=== PATIENT | female | born 1985 | race American Indian/Alaskan Native ===

== ENCOUNTER 2021-02-15 14:57 | Emergency (ER) | payer BC, MEDICAID ==
[2021-02-15 15:48] VITALS: BP 116/82
[2021-02-15] MEDS ORDERED: IBUPROFEN 800 MG TAB PO STA (16:07)
[2021-02-15] MEDS ORDERED: ACETAMINOPHEN 500 MG TAB PO STA (16:07)
--- NOTE | 2021-02-15 16:09 | Emergency Department Report ---
ED General Adult HPI - General Chief complaint: Extremity Problem,Nontraumatic Stated complaint: HAND PAIN Time Seen by Provider: 02/15/21 15:41 Source: patient Mode of arrival: Ambulatory Limitations: No Limitations - History of Present Illness Initial comments: 35-year-old female patient with history of bipolar disorder presents with complaints of bilateral hand pain x3 days. Patient states she believes she has infection in 2 her hands due to chewing on them regularly. She also reports that she has been off of her Abilify and her anxiety has been high and she has been banking her hands on tables. She denies any swelling to the hands, fever/chills/sweats, or difficulty moving her hands. No IV drug use per patient. She rates her current pain as a 5/10 in severity has not tried any OTC medication for symptoms. -: Sudden Severity scale (0 -10): 10 - Related Data Home Medications Medication Instructions Recorded Confirmed Last Taken ARIPiprazole [Abilify TAB] 20 mg PO DAILY 08/21/16 08/21/16 08/20/16 buPROPion HCL [buPROPion] 75 mg PO DAILY 08/21/16 08/21/16 08/20/16 lamoTRIgine [LaMICtal] 150 mg PO BID 08/21/16 08/21/16 08/20/16 Previous Rx's Medication Instructions Recorded Last Taken Type Ibuprofen [Motrin 800 MG tab] 800 mg PO Q8HR PRN #20 tablet 02/15/21 Unknown Rx cephALEXin [Keflex] 500 mg PO Q8HR 7 Days #21 cap 02/15/21 Unknown Rx Allergies Allergy/AdvReac Type Severity Reaction Status Date / Time No Known Allergies Allergy Unverified 08/21/16 07:12 ED Review of Systems ROS: Stated complaint: HAND PAIN Other details as noted in HPI Constitutional: denies: chills, fever, malaise, weakness Musculoskeletal: arthralgia. denies: joint swelling Skin: lesions. denies: rash Neurological: denies: numbness, paresthesias ED Past Medical Hx - Past Medical History Previous Medical History?: No Hx Psychiatric Treatment: Yes (bipolar) - Surgical History Past Surgical History?: No - Social History Smoking Status: Current Every Day Smoker Substance Use Type: Alcohol, Prescribed, Other - Medications Home Medications: Home Medications Medication Instructions Recorded Confirmed Last Taken Type ARIPiprazole [Abilify TAB] 20 mg PO DAILY 08/21/16 08/21/16 08/20/16 History buPROPion HCL [buPROPion] 75 mg PO DAILY 08/21/16 08/21/16 08/20/16 History lamoTRIgine [LaMICtal] 150 mg PO BID 08/21/16 08/21/16 08/20/16 History Ibuprofen [Motrin 800 MG tab] 800 mg PO Q8HR PRN #20 tablet 02/15/21 Unknown Rx cephALEXin [Keflex] 500 mg PO Q8HR 7 Days #21 cap 02/15/21 Unknown Rx ED Physical Exam - General Limitations: No Limitations General appearance: alert, in no apparent distress - Head Head exam: Present: atraumatic, normocephalic - Respiratory Respiratory exam: Absent: respiratory distress - Cardiovascular Cardiovascular Exam: Present: regular rate - Extremities Exam Extremities exam: Present: full ROM, other (Scattered scabs noted bilaterally to hands and fingers without cellulitic changes or active drainage noted; both hands are mildly tender to touch without any specific pain; full range of motion of the hands and sensation and perfusion noted bilaterally) - Expanded Upper Extremity Exam Left Hand Wrist exam: Present: other (Mild erythema surrounding the base of the left little finger without active fluctuation noted) ED Course Vital Signs 02/15/21 15:47 Temperature 98.4 F Pulse Rate 82 Respiratory 18 Rate Blood Pressure 116/82 [Right] O2 Sat by Pulse 98 Oximetry ED Medical Decision Making - Medical Decision Making 35-year-old female patient with history of bipolar disorder presents with complaints of bilateral hand pain x3 days. Patient states she believes she has infection in 2 her hands due to chewing on them regularly. She also reports that she has been off of her Abilify and her anxiety has been high and she has been banking her hands on tables. She denies any swelling to the hands, fever/chills/sweats, or difficulty moving her hands. No IV drug use per patient. She rates her current pain as a 5/10 in severity has not tried any OTC medication for symptoms. No signs of cellulitis or swelling of the joints noted on exam. Possible start of a paronychia noted to left little finger. Will treat with Keflex. Recommend patient follows up with primary care within 3 days. Discussed signs symptoms that should prompt immediate return to the emergency department in detail millie de verbalized understanding. Her vitals are within normal limits, she is well-appearing, she is stable for discharge home. Critical care attestation.: If time is entered above; I have spent that time in minutes in the direct care of this critically ill patient, excluding procedure time. ED Disposition Clinical Impression: Bilateral hand pain, Paronychia Disposition: TO HOME OR SELFCARE Is pt being admited?: No Condition: Stable Instructions: Hand Pain, Paronychia Prescriptions: cephALEXin [Keflex] 500 mg PO Q8HR 7 Days #21 cap Ibuprofen [Motrin 800 MG tab] 800 mg PO Q8HR PRN #20 tablet PRN Reason: pain Referrals: [facility] [Provider Group] - 3-5 Days Time of Disposition: 16:23
== END 2021-02-15 17:59 | disposition home or self-care (01) ==
LOC: ED 14:57
DX: L03.012 Cellulitis of left finger (principal); L03.011 Cellulitis of right finger; M25.541 Pain in joints of right hand; M25.542 Pain in joints of left hand; F31.9 Bipolar disorder, unspecified; F17.200 Nicotine dependence, unspecified, uncomplicated; Z79.1 Long term (current) use of non-steroidal anti-inflammatories (NSAID); Z79.899 Other long term (current) drug therapy
CPT/HCPCS: 99282